=== PATIENT | male | born 1955 | race Two or more races ===

== ENCOUNTER → 2017-10-23 | Outpatient (CLI) | payer OTHER ==
[~2017-10-23] VITALS: Ht 152.4 cm; Wt 59.0 kg
[~2017-10-23] MED LIST: MOTRIN PM CAPL1 EACH
== END | disposition home or self-care (01) ==
LOC: PPHC 09:52
DX: R09.81 Nasal congestion (principal)

== ENCOUNTER 2018-09-15 08:02 | Emergency (ER) | payer OTHER ==
[~2018-09-15] VITALS: Ht 160 cm; Wt 61.2 kg
== END 2018-09-15 12:09 | disposition home or self-care (01) ==
LOC: ER 08:02
DX: S61.412A Laceration without foreign body of left hand, initial encounter (principal); W45.8XXA Other foreign body or object entering through skin, initial encounter; Y93.89 Activity, other specified; Y92.69 Other specified industrial and construction area as the place of occurrence of the external cause; Y99.8 Other external cause status

== ENCOUNTER 2019-01-03 08:34 | Emergency (ER) | payer OTHER ==
[~2019-01-03] VITALS: Ht 160 cm; Wt 63.5 kg
== END 2019-01-03 09:15 | disposition home or self-care (01) ==
LOC: ER 08:34
DX: S61.244A Puncture wound with foreign body of right ring finger without damage to nail, initial encounter (principal); W46.0XXA Contact with hypodermic needle, initial encounter; Y93.89 Activity, other specified; Y92.69 Other specified industrial and construction area as the place of occurrence of the external cause; Y99.8 Other external cause status

== ENCOUNTER 2019-02-01 14:20 | Outpatient (CLI) | payer OTHER | END 2019-02-01 14:51 | disposition home or self-care (01) | LOC: LAB 14:20 | DX: Z11.3 Encounter for screening for infections with a predominantly sexual mode of transmission (principal) ==

== ENCOUNTER 2021-08-19 08:00 | Outpatient (CLI) | payer OTHER | END 2021-08-19 08:30 | disposition home or self-care (01) | LOC: PPH VACUNA 08:00 | PROVIDERS: ATTEND Emergency Medicine Pediatric Emergency Medicine | DX: Z23 Encounter for immunization (principal) ==

== ENCOUNTER 2021-09-19 08:00 | Outpatient (CLI) | payer OTHER | END 2021-09-19 08:30 | disposition home or self-care (01) | LOC: PPH VACUNA 08:00 | PROVIDERS: ATTEND Emergency Medicine Pediatric Emergency Medicine | DX: Z23 Encounter for immunization (principal) ==

== ENCOUNTER 2022-04-23 20:58 | Inpatient (IN) | payer OTHER ==
[~2022-04-23] VITALS: Ht 162.6 cm; Wt 56.7 kg
== END 2022-05-01 20:42 | disposition home or self-care (01) | DRG 65 ==
LOC: ER → MEDJ 04-24 13:12
PROVIDERS: ADMIT Internal Medicine; ATTEND Internal Medicine
PROC: BW28ZZZ Computerized Tomography (CT Scan) of Head (ICD-10-PCS; principal; 2022-04-24)
PROC: BW38ZZZ Magnetic Resonance Imaging (MRI) of Head (ICD-10-PCS; 2022-04-24)
PROC: B345ZZZ Ultrasonography of Bilateral Common Carotid Arteries (ICD-10-PCS; 2022-04-26)
PROC: BW28YZZ Computerized Tomography (CT Scan) of Head using Other Contrast (ICD-10-PCS; 2022-04-27)
PROC: 4A12X4Z Monitoring of Cardiac Electrical Activity, External Approach (ICD-10-PCS; 2022-04-29)
PROC: B24BZZZ Ultrasonography of Heart with Aorta (ICD-10-PCS; 2022-04-29)
DX: I63.9 Cerebral infarction, unspecified (principal); G81.91 Hemiplegia, unspecified affecting right dominant side; I99.8 Other disorder of circulatory system; R29.818 Other symptoms and signs involving the nervous system; R47.1 Dysarthria and anarthria; I10 Essential (primary) hypertension
CPT/HCPCS: 70551

== ENCOUNTER 2022-06-05 09:08 | Outpatient (CLI) | payer OTHER | END 2022-06-05 09:25 | disposition home or self-care (01) | LOC: LAB 09:08 | PROVIDERS: ATTEND Specialist | DX: N39.9 Disorder of urinary system, unspecified (principal); N40.1 Benign prostatic hyperplasia with lower urinary tract symptoms; E78.2 Mixed hyperlipidemia; E11.65 Type 2 diabetes mellitus with hyperglycemia; Z12.11 Encounter for screening for malignant neoplasm of colon; D64.9 Anemia, unspecified; K75.81 Nonalcoholic steatohepatitis (NASH); I10 Essential (primary) hypertension ==

== ENCOUNTER 2022-10-13 08:57 | Emergency (ER) | payer OTHER ==
[~2022-10-13] VITALS: Ht 160 cm; Wt 54.4 kg
[2022-10-13] MEDS ORDERED: PEPCID AC20 MG PO (09:49)
[2022-10-13] MEDS ORDERED: TOPROL XL25 M1 PO (09:49)
[2022-10-13] MEDS ORDERED: ATORVASTATIN CA20 MG PO (09:49)
[2022-10-13] MEDS ORDERED: PLAVIX75 MG PO (09:49)
[2022-10-13] MEDS ORDERED: COZAAR25 MG PO (09:49)
[2022-10-13] MEDS ORDERED: CHILDREN'S ASPI81 MG PO (09:50)
== END 2022-10-13 15:39 | disposition home or self-care (01) ==
LOC: ER 08:57
DX: A09 Infectious gastroenteritis and colitis, unspecified (principal); Z91.012 Allergy to eggs

== ENCOUNTER → 2022-12-08 06:40 | Outpatient (CLI) | payer OTHER ==
[~2022-12-08 06:40] MED LIST changes: +ATORVASTATIN CA20 MG PO; +CHILDREN'S ASPI81 MG PO; +COZAAR25 MG PO; +PEPCID AC20 MG PO; +PLAVIX75 MG PO; +TOPROL XL25 M1 PO
== END | disposition home or self-care (01) ==
LOC: LAB 06:40
PROVIDERS: ATTEND Specialist
DX: E03.9 Hypothyroidism, unspecified (principal); E11.21 Type 2 diabetes mellitus with diabetic nephropathy; N39.9 Disorder of urinary system, unspecified; E78.2 Mixed hyperlipidemia; E11.65 Type 2 diabetes mellitus with hyperglycemia; Z12.11 Encounter for screening for malignant neoplasm of colon; D64.9 Anemia, unspecified; D68.8 Other specified coagulation defects; K75.81 Nonalcoholic steatohepatitis (NASH); N25.81 Secondary hyperparathyroidism of renal origin

== ENCOUNTER 2023-02-07 09:41 | Emergency (ER) | payer OTHER ==
[~2023-02-07] VITALS: Ht 160 cm; Wt 54.4 kg
== END 2023-02-07 14:52 | disposition home or self-care (01) ==
LOC: ER 09:41
DX: R42 Dizziness and giddiness (principal); Z86.73 Personal history of transient ischemic attack (TIA), and cerebral infarction without residual deficits; Z91.012 Allergy to eggs

== ENCOUNTER 2023-03-04 06:31 | Outpatient (CLI) | payer OTHER | END 2023-03-04 06:38 | disposition home or self-care (01) | LOC: LAB 06:31 | PROVIDERS: ATTEND Specialist | DX: D64.89 Other specified anemias (principal); Z12.5 Encounter for screening for malignant neoplasm of prostate; N25.81 Secondary hyperparathyroidism of renal origin; N39.9 Disorder of urinary system, unspecified; Z13.220 Encounter for screening for lipoid disorders; E11.21 Type 2 diabetes mellitus with diabetic nephropathy; J45.991 Cough variant asthma ==

== ENCOUNTER → 2023-06-04 | Outpatient (CLI) | payer OTHER | END | disposition home or self-care (01) | LOC: PPH VACUNA | PROVIDERS: ATTEND Emergency Medicine Pediatric Emergency Medicine | DX: Z23 Encounter for immunization (principal) ==

== ENCOUNTER → 2023-06-05 06:51 | Outpatient (CLI) | payer OTHER | END | disposition home or self-care (01) | LOC: LAB 06:51 | PROVIDERS: ATTEND Specialist | DX: E03.8 Other specified hypothyroidism (principal); E11.69 Type 2 diabetes mellitus with other specified complication; E11.21 Type 2 diabetes mellitus with diabetic nephropathy; D64.89 Other specified anemias; N39.9 Disorder of urinary system, unspecified; Z13.220 Encounter for screening for lipoid disorders; Z91.012 Allergy to eggs ==

== ENCOUNTER 2023-06-24 09:14 | Outpatient (CLI) | payer OTHER | END 2023-06-24 09:28 | disposition home or self-care (01) | LOC: SONOGRAMA 09:14 | PROVIDERS: ATTEND Specialist | DX: N13.2 Hydronephrosis with renal and ureteral calculous obstruction (principal) ==

== ENCOUNTER → 2023-07-13 06:10 | Outpatient (CLI) | payer OTHER ==
[2023-07-13 07:03] LABS: PH,URINE 5.5 (5.0-8.0); URINE APPEARANCE Clear; URINE BILIRRUBIN Negative (NEGATIVE); URINE BLOOD Trace; URINE COLOR Yellow; URINE GLUCOSE Negative (NEGATIVE); URINE LEUKOCYTE Negative; URINE NITRATE Negative; URINE PROTEIN Trace (NEGATIVE); URINE UROBILINOGEN 0.2 E.U./dl
[2023-07-13 07:05] LABS: HEMATOCRIT 38.1 % (39.0-48.0); HEMOGLOBIN 12.6 g/dL (13-16.00); MEAN CELL VOLUME 90.1 fL (80.0-100.00); MEAN CORPUSCULAR HEMOGLOBIN 29.8 pg (27.00-32.0); MEAN CORPUSCULAR HGB CONC 33.1 g/dl (32.0-36.0); PLATELET COUNT 281 K/uL (150-450); RED BLOOD COUNT 4.23 M/uL (4.00-6.00); RED CELL DISTRIBUTION WIDTH 12.7 % (11.5-14.5)
[2023-07-13 07:06] LABS: URINE EPITHELIAL CELLS 3.3 uL (0.0-38.8); URINE RBC 22.1 uL (0.0-20.8); URINE WBC 2.7 uL (0.0-23.2)
[2023-07-13 07:25] LABS: INR 1.04; PARTIAL THROMBOPLASTIN TIME 24.3 SECONDS (22.0-34.0); PROTHROMBIN TIME 10.9 SECONDS (9.0-11.5)
[2023-07-13 07:57] LABS: FERRITIN 91.1 NG/ML (26-388); PROSTATIC SPECIFIC ANTIGEN 1.73 NG/ML (0.010-4.00)
[2023-07-13 10:18] LABS: FOLIC ACID > 20.00 ng/ml (4.78-20)
== END | disposition home or self-care (01) ==
LOC: LAB 06:10
PROVIDERS: ATTEND Specialist
DX: N39.9 Disorder of urinary system, unspecified (principal); N40.1 Benign prostatic hyperplasia with lower urinary tract symptoms; D64.9 Anemia, unspecified; D68.8 Other specified coagulation defects; N39.0 Urinary tract infection, site not specified; D51.0 Vitamin B12 deficiency anemia due to intrinsic factor deficiency

== ENCOUNTER → 2023-08-12 06:15 | Outpatient (CLI) | payer OTHER ==
[2023-08-12 08:23] LABS: HEMATOCRIT 37.4 % (39.0-48.0); HEMOGLOBIN 12.8 g/dL (13-16.00); MEAN CELL VOLUME 88.1 fL (80.0-100.00); MEAN CORPUSCULAR HEMOGLOBIN 30.3 pg (27.00-32.0); MEAN CORPUSCULAR HGB CONC 34.3 g/dl (32.0-36.0); PLATELET COUNT 270 K/uL (150-450); RED BLOOD COUNT 4.24 M/uL (4.00-6.00); RED CELL DISTRIBUTION WIDTH 12.8 % (11.5-14.5)
[2023-08-12 11:33] LABS: PLATELET ESTIMATE NORMAL (NORMAL)
== END | disposition home or self-care (01) ==
LOC: LAB 06:15
PROVIDERS: ATTEND Specialist
DX: D51.0 Vitamin B12 deficiency anemia due to intrinsic factor deficiency (principal); Z91.012 Allergy to eggs

== ENCOUNTER → 2024-04-14 | Emergency (ER) | payer OTHER ==
[~2024-04-14] VITALS: Ht 160 cm; Wt 54.4 kg
[~2024-04-14] MED LIST changes: +0.9 % SODIUM CHLORIDE 1,000 ML IV SCH; +DIPHENHYDRAMINE HCL 50 MG/ML VIAL 1ML IV ONE; +DRAMAMINE LESS25 MG PO; +MECLIZINE HCL 25 MG TABLET PO ONE; +ONDANSETRON HCL 2 MG/ML VIAL IV ONE
[2024-04-14 11:32] LABS: HEMATOCRIT 38.2 % (39.0-48.0); MEAN CORPUSCULAR HEMOGLOBIN 30.4 pg (27.00-32.0); MEAN CORPUSCULAR HGB CONC 34.1 g/dl (32.0-36.0); PLATELET COUNT 283 K/uL (150-450); RED BLOOD COUNT 4.29 M/uL (4.00-6.00); RED CELL DISTRIBUTION WIDTH 12.9 % (11.5-14.5)
[2024-04-14 11:54] LABS: ALBUMIN 3.6 gm/dL (3.4-5.0); BILIRUBIN TOTAL 0.48 mg/dL (0.3-1.2); CREATININE SERUM 0.79 mg/dL (0.70-1.30); GFR 97.25; GLOBULINA 3.3 G/DL (2.4-3.5); POTASSIUM 3.78 mEq/L (3.5-5.1); TOTAL PROTEIN 6.9 gm/dL (6.4-8.2)
== END | disposition home or self-care (01) ==
LOC: ER 10:36
PROVIDERS: General Practice
DX: R42 Dizziness and giddiness (principal); I10 Essential (primary) hypertension; Z91.018 Allergy to other foods

== ENCOUNTER 2024-05-01 06:12 | Emergency (ER) | payer OTHER ==
[~2024-05-01] VITALS: Ht 154.9 cm; Wt 49.9 kg
[~2024-05-01 06:12] MED LIST changes: -0.9 % SODIUM CHLORIDE 1,000 ML IV SCH; -DIPHENHYDRAMINE HCL 50 MG/ML VIAL 1ML IV ONE; -MECLIZINE HCL 25 MG TABLET PO ONE; -ONDANSETRON HCL 2 MG/ML VIAL IV ONE
== END 2024-05-01 10:32 | disposition home or self-care (01) ==
LOC: ER 06:12
DX: R51.9 Headache, unspecified (principal); M51.36 Other intervertebral disc degeneration, lumbar region; Z91.012 Allergy to eggs; Z91.018 Allergy to other foods; I10 Essential (primary) hypertension

== ENCOUNTER → 2024-05-03 | Emergency (ER) | payer OTHER ==
[~2024-05-03] VITALS: Ht 154.9 cm; Wt 54.4 kg
[~2024-05-03] MED LIST changes: +DEXAMETHASONE SODIUM PHOSPHATE 4 MG/ML VIAL IV STA; +DEXAMETHASONE SODIUM PHOSPHATE 4 MG/ML VIAL ONE; +MANNITOL 0.2 GM/ML (250ML) PIGGYBAG IV STA; +MANNITOL 0.2 GM/ML (500ML) IV.SOLN IV ONE; +MANNITOL 0.2 GM/ML (500ML) IV.SOLN IV STA
[2024-05-03 14:45] LABS: HEMATOCRIT 41.1 % (39.0-48.0); HEMOGLOBIN 14.2 g/dL (13-16.00); MEAN CELL VOLUME 88.3 fL (80.0-100.00); MEAN CORPUSCULAR HEMOGLOBIN 30.4 pg (27.00-32.0); MEAN CORPUSCULAR HGB CONC 34.5 g/dl (32.0-36.0); PLATELET COUNT 334 K/uL (150-450); RED BLOOD COUNT 4.66 M/uL (4.00-6.00); RED CELL DISTRIBUTION WIDTH 12.5 % (11.5-14.5)
[2024-05-03 16:28] LABS: PH,URINE 5.5 (5.0-8.0); URINE APPEARANCE Clear; URINE BILIRRUBIN Negative (NEGATIVE); URINE BLOOD Moderate; URINE COLOR Yellow; URINE KETONE Negative (NEGATIVE); URINE LEUKOCYTE Negative; URINE NITRATE Negative; URINE PROTEIN Trace (NEGATIVE)
[2024-05-03 16:29] LABS: URINE BACTERIA 6.2 uL (0.0-1933); URINE EPITHELIAL CELLS 2.9 uL (0.0-38.8); URINE RBC 69.1 uL (0.0-20.8)
[2024-05-03 16:49] LABS: URINE CAST 0.15 uL (0.0-1.40); URINE GLUCOSE 250 MG/DL (NEGATIVE)
== END | disposition home or self-care (01) ==
LOC: ER 11:10
PROVIDERS: General Practice
DX: I61.9 Nontraumatic intracerebral hemorrhage, unspecified (principal); I10 Essential (primary) hypertension; Z86.73 Personal history of transient ischemic attack (TIA), and cerebral infarction without residual deficits; Z91.012 Allergy to eggs; Z91.018 Allergy to other foods; Z20.822 Contact with and (suspected) exposure to COVID-19
CPT/HCPCS: 70551

== ENCOUNTER 2024-05-12 06:22 | Outpatient (CLI) | payer OTHER ==
[~2024-05-12 06:22] MED LIST changes: -DEXAMETHASONE SODIUM PHOSPHATE 4 MG/ML VIAL IV STA; -DEXAMETHASONE SODIUM PHOSPHATE 4 MG/ML VIAL ONE; -MANNITOL 0.2 GM/ML (250ML) PIGGYBAG IV STA; -MANNITOL 0.2 GM/ML (500ML) IV.SOLN IV ONE; -MANNITOL 0.2 GM/ML (500ML) IV.SOLN IV STA
[2024-05-12 07:21] LABS: HEMATOCRIT 36.2 % (39.0-48.0); HEMOGLOBIN 12.6 g/dL (13-16.00); MEAN CELL VOLUME 89.6 fL (80.0-100.00); MEAN CORPUSCULAR HEMOGLOBIN 31.2 pg (27.00-32.0); MEAN CORPUSCULAR HGB CONC 34.8 g/dl (32.0-36.0); PLATELET COUNT 457 K/uL (150-450); RED BLOOD COUNT 4.04 M/uL (4.00-6.00); RED CELL DISTRIBUTION WIDTH 12.3 % (11.5-14.5)
[2024-05-12 07:34] LABS: INR 1.04; PARTIAL THROMBOPLASTIN TIME 27.7 SECONDS (22.0-34.0)
[2024-05-12 07:35] LABS: PROTHROMBIN TIME 10.9 SECONDS (9.0-11.5)
[2024-05-16 07:36] LABS: VON WILLERBRAND ACTIVITY 196; VON WILLERBRAND ANTIGEN 216
== END 2024-05-12 06:24 | disposition home or self-care (01) ==
LOC: LAB 06:22
PROVIDERS: ATTEND Psychiatry & Neurology Clinical Neurophysiology
DX: D68.00 Von Willebrand disease, unspecified (principal)

== ENCOUNTER 2024-05-12 10:05 | Outpatient (CLI) | payer OTHER | END 2024-05-12 13:37 | disposition home or self-care (01) | LOC: TOM 10:05 | DX: S06.5XAA Traumatic subdural hemorrhage with loss of consciousness status unknown, initial encounter (principal) ==

== ENCOUNTER 2024-07-29 08:58 | Outpatient (CLI) | payer OTHER | END 2024-07-29 09:09 | disposition home or self-care (01) | LOC: TOM 08:58 | DX: S06.5X0A Traumatic subdural hemorrhage without loss of consciousness, initial encounter (principal) ==

== ENCOUNTER → 2024-08-05 06:04 | Outpatient (CLI) | payer OTHER ==
[2024-08-05 07:25] LABS: PH,URINE 6.5 (5.0-8.0); URINE APPEARANCE Clear; URINE BILIRRUBIN Negative (NEGATIVE); URINE COLOR Yellow; URINE GLUCOSE Negative (NEGATIVE); URINE KETONE Trace (NEGATIVE); URINE LEUKOCYTE Negative; URINE NITRATE Negative; URINE PROTEIN Trace (NEGATIVE); URINE UROBILINOGEN 0.2 E.U./dl
[2024-08-05 07:26] LABS: URINE RBC 49.9 uL (0.0-20.8); URINE WBC 2.9 uL (0.0-23.2)
[2024-08-05 07:27] LABS: HEMATOCRIT 38.2 % (39.0-48.0); MEAN CELL VOLUME 90.4 fL (80.0-100.00); MEAN CORPUSCULAR HEMOGLOBIN 30.8 pg (27.00-32.0); PLATELET COUNT 264 K/uL (150-450); RED BLOOD COUNT 4.22 M/uL (4.00-6.00); RED CELL DISTRIBUTION WIDTH 13.5 % (11.5-14.5)
[2024-08-05 07:31] LABS: URINE BACTERIA 2.5 uL (0.0-1933); URINE BLOOD TRACES; URINE EPITHELIAL CELLS 1.2 uL (0.0-38.8)
[2024-08-05 07:36] LABS: INR 1.04; PARTIAL THROMBOPLASTIN TIME 26.5 SECONDS (22.0-34.0); PROTHROMBIN TIME 11.3 SECONDS (9.0-11.5)
[2024-08-05 08:07] LABS: ALBUMIN 3.5 gm/dL (3.4-5.0); BILIRUBIN TOTAL 0.52 mg/dL (0.3-1.2); BILIRUBIN,CONJUGATED 0.17 mg/dL (0.0-0.2); BILIRUBIN,UNCONJUGATED 0.35 mg/dL (0.0-0.6); CALCIUM 8.9 mg/dL (8.5-10.1); CHOL HDL RATIO 2.6 (0-5.0); CREATININE SERUM 0.75 mg/dL (0.70-1.30); GFR 103.26; GLOBULINA 3.5 G/DL (2.4-3.5); POTASSIUM 4.3 mEq/L (3.5-5.1); TSH 3.53 uIU/mL (0.358-3.74)
== END | disposition home or self-care (01) ==
LOC: LAB 06:04
PROVIDERS: ATTEND Specialist
DX: E03.9 Hypothyroidism, unspecified (principal); N39.9 Disorder of urinary system, unspecified; E78.2 Mixed hyperlipidemia; E11.65 Type 2 diabetes mellitus with hyperglycemia; D64.9 Anemia, unspecified; D68.8 Other specified coagulation defects; K75.81 Nonalcoholic steatohepatitis (NASH); N25.81 Secondary hyperparathyroidism of renal origin

== ENCOUNTER 2024-11-03 06:07 | Outpatient (CLI) | payer OTHER ==
[2024-11-03 07:11] LABS: URINE APPEARANCE Clear; URINE BILIRRUBIN Negative (NEGATIVE); URINE BLOOD Negative; URINE COLOR Yellow; URINE GLUCOSE Negative (NEGATIVE); URINE KETONE Trace (NEGATIVE); URINE LEUKOCYTE Trace; URINE NITRATE Negative; URINE PROTEIN Trace (NEGATIVE)
[2024-11-03 07:12] LABS: URINE RBC 67.4 uL (0.0-20.8); URINE WBC 1.8 uL (0.0-23.2)
[2024-11-03 07:13] LABS: URINE BACTERIA 1.2 uL (0.0-1933); URINE CAST 0.14 uL (0.0-1.40); URINE EPITHELIAL CELLS 0.7 uL (0.0-38.8)
[2024-11-03 07:33] LABS: HEMATOCRIT 38.5 % (39.0-48.0); HEMOGLOBIN 12.9 g/dL (13-16.00); MEAN CORPUSCULAR HEMOGLOBIN 29.8 pg (27.00-32.0); MEAN CORPUSCULAR HGB CONC 33.5 g/dl (32.0-36.0); PLATELET COUNT 250 K/uL (150-450); RED BLOOD COUNT 4.33 M/uL (4.00-6.00); RED CELL DISTRIBUTION WIDTH 13.1 % (11.5-14.5)
[2024-11-03 09:08] LABS: ALBUMIN 3.5 gm/dL (3.4-5.0); BILIRUBIN TOTAL 0.68 mg/dL (0.3-1.2); CALCIUM 8.8 mg/dL (8.5-10.1); CHOL HDL RATIO 2.9 (0-5.0); CREATININE SERUM 0.73 mg/dL (0.70-1.30); FREE TRIODOTIRONINE 2.37 pg/ml (2.18-3.98); GFR 106.53; GLOBULINA 3.2 G/DL (2.4-3.5); POTASSIUM 4.11 mEq/L (3.5-5.1); PROSTATIC SPECIFIC ANTIGEN 1.77 NG/ML (0.010-4.00); T4 FREE 0.83 NG/ML (0.76-1.46); TOTAL PROTEIN 6.7 gm/dL (6.4-8.2); TSH 2.2 uIU/mL (0.358-3.74)
[2024-11-03 10:19] LABS: PLATELET ESTIMATE NORMAL (NORMAL)
== END 2024-11-03 06:09 | disposition home or self-care (01) ==
LOC: LAB 06:07
PROVIDERS: ATTEND Specialist
DX: E03.9 Hypothyroidism, unspecified (principal); E11.21 Type 2 diabetes mellitus with diabetic nephropathy; N39.9 Disorder of urinary system, unspecified; D40.0 Neoplasm of uncertain behavior of prostate; E78.2 Mixed hyperlipidemia; E11.65 Type 2 diabetes mellitus with hyperglycemia; Z12.11 Encounter for screening for malignant neoplasm of colon; D64.9 Anemia, unspecified; N25.81 Secondary hyperparathyroidism of renal origin

== ENCOUNTER 2024-11-03 06:59 | Outpatient (CLI) | payer OTHER | END 2024-11-03 07:01 | disposition home or self-care (01) | LOC: SONOGRAMA 06:59 | PROVIDERS: ATTEND Specialist | DX: R31.9 Hematuria, unspecified (principal) ==

== ENCOUNTER 2024-11-22 06:57 | Outpatient (CLI) | payer OTHER ==
[2024-11-22 08:11] LABS: ob NEGATIVE (NEGATIVE)
== END 2024-11-22 07:01 | disposition home or self-care (01) ==
LOC: LAB 06:57
PROVIDERS: ATTEND Specialist
DX: E03.9 Hypothyroidism, unspecified (principal); E11.21 Type 2 diabetes mellitus with diabetic nephropathy; N39.0 Urinary tract infection, site not specified; D40.0 Neoplasm of uncertain behavior of prostate; E78.2 Mixed hyperlipidemia; E11.65 Type 2 diabetes mellitus with hyperglycemia; Z12.11 Encounter for screening for malignant neoplasm of colon; D64.9 Anemia, unspecified; N25.81 Secondary hyperparathyroidism of renal origin; E55.9 Vitamin D deficiency, unspecified

== ENCOUNTER 2024-12-27 11:12 | Outpatient (CLI) | payer OTHER ==
[2024-12-29 07:09] LABS: HEPATITIS A ANTIBODY IGG Positive (Negative); HEPATITIS B SURFACE ANTIBODY Reactive (.); HEPATITIS C VIRUS ANTIBODY Non Reactive (Non Reactive)
== END 2024-12-27 11:13 | disposition home or self-care (01) ==
LOC: LAB 11:12
DX: A64 Unspecified sexually transmitted disease (principal); B19.9 Unspecified viral hepatitis without hepatic coma

== ENCOUNTER 2025-05-28 07:08 | Emergency (ER) | payer OTHER ==
[~2025-05-28] VITALS: Ht 160 cm; Wt 55.3 kg
[2025-05-28] MEDS ORDERED: FOLIC ACID0.8 M1 PO (07:17)
[2025-05-28] MEDS ORDERED: METFORMIN HCL500 M3 PO (07:17)
[2025-05-28] MEDS ORDERED: FAMOTIDINE/PF 20 MG in 0.9 % SODIUM CHLORIDE 100 ML IV PUSH ONE (08:30)
[2025-05-28] MEDS ORDERED: ONDANSETRON HCL 2 MG/ML VIAL IV ONE (08:30)
[2025-05-28] MEDS ORDERED: SODIUM CHLORIDE 0.45 % 500 ML IV ONE (08:45)
[2025-05-28 09:29] LABS: BASO % 0.6 % (0.1-1.2); EOS # 0.02 (0.04-0.54); EOS % 0.2 % (0.7-7.0); LYMPH # 1.77 (1.18-3.74); LYMPH % 17.7 % (19.3-53.1); MEAN PLATELET VOLUME 9.20 fl (9.4-12.4); MONO # 1.00 (0.24-0.82); MONO % 10.0 % (4.7-12.5); NEUT # 7.12 (1.56-6.13); NEUT % 71.0 % (34.0-71.1); RED CELL DISTRIBUTION WIDTH 12.3 % (11.6-14.4)
[2025-05-28 10:10] LABS: ALT/SGPT 19.0 U/L (12-78); AST/SGOT 29.0 U/L (15-37); BILIRUBIN TOTAL 0.7 mg/dL (0.3-1.2); BUN CREA RATIO 22.0 (7.0-25.0); CREATININE SERUM 0.83 mg/dL (0.70-1.30); GFR 91.59; GLOBULINA 4.2 G/DL (2.4-3.5); GLUCOSE FASTING 94.0 mg/dL (65-100); OSMOLALITY SERUM 281.0 MOSM/KG (275-295)
[2025-05-28 10:44] LABS: URINE APPEARANCE Clear; URINE BILIRRUBIN Negative (NEGATIVE); URINE BLOOD NHT; URINE COLOR Yellow; URINE GLUCOSE Negative (NEGATIVE); URINE KETONE Negative (NEGATIVE); URINE LEUKOCYTE Negative; URINE NITRATE Negative; URINE PROTEIN Negative (NEGATIVE); URINE UROBILINOGEN 0.2 E.U./dl
[2025-05-28 10:49] LABS: URINE RBC 22.2 uL (0.0-20.8); URINE WBC 3.3 uL (0.0-23.2)
[2025-05-28 10:53] LABS: URINE BACTERIA 1.1 uL (0.0-1933); URINE CAST 0.29 uL (0.0-1.40); URINE EPITHELIAL CELLS 0.7 uL (0.0-38.8)
== END 2025-05-28 09:01 | disposition home or self-care (01) ==
LOC: ER 07:09
PROVIDERS: General Practice
DX: K29.70 Gastritis, unspecified, without bleeding (principal); A05.9 Bacterial foodborne intoxication, unspecified; I10 Essential (primary) hypertension; E11.9 Type 2 diabetes mellitus without complications; Z79.84 Long term (current) use of oral hypoglycemic drugs; Z91.012 Allergy to eggs; Z91.018 Allergy to other foods

== ENCOUNTER 2025-05-30 05:27 | Emergency (ER) | payer OTHER ==
[~2025-05-30] VITALS: Ht 160 cm; Wt 55.3 kg
[~2025-05-30 05:27] MED LIST changes: +FOLIC ACID0.8 M1 PO; +METFORMIN HCL500 M3 PO
[2025-05-30] MEDS ORDERED: 0.9 % SODIUM CHLORIDE 1,000 ML IV STA (06:59)
[2025-05-30] MEDS ORDERED: MECLIZINE HCL 25 MG TABLET PO STA (07:00)
[2025-05-30 08:19] LABS: ALT/SGPT 14.0 U/L (12-78); AST/SGOT 17.0 U/L (15-37); BILIRUBIN TOTAL 0.61 mg/dL (0.3-1.2); BUN CREA RATIO 19.0 (7.0-25.0); CREATININE SERUM 0.84 mg/dL (0.70-1.30); GFR 90.33; GLOBULINA 3.7 G/DL (2.4-3.5); GLUCOSE FASTING 90.0 mg/dL (65-100); OSMOLALITY SERUM 284.0 MOSM/KG (275-295)
[2025-05-30 08:29] LABS: BASO % 0.7 % (0.1-1.2); EOS # 0.08 (0.04-0.54); EOS % 0.9 % (0.7-7.0); LYMPH # 1.48 (1.18-3.74); LYMPH % 16.1 % (19.3-53.1); MEAN PLATELET VOLUME 9.20 fl (9.4-12.4); MONO # 0.97 (0.24-0.82); MONO % 10.5 % (4.7-12.5); NEUT # 6.56 (1.56-6.13); NEUT % 71.3 % (34.0-71.1); RED CELL DISTRIBUTION WIDTH 12.0 % (11.6-14.4)
[2025-05-30 08:37] LABS: INR 1.05
== END 2025-05-30 10:50 | disposition home or self-care (01) ==
LOC: ER 05:27
DX: K29.70 Gastritis, unspecified, without bleeding (principal); R53.1 Weakness; I10 Essential (primary) hypertension; Z91.012 Allergy to eggs; Z91.018 Allergy to other foods

== ENCOUNTER 2025-07-06 06:04 | Outpatient (CLI) | payer OTHER ==
[2025-07-06 07:08] LABS: BASO % 0.8 % (0.1-1.2); EOS # 0.32 (0.04-0.54); EOS % 5.0 % (0.7-7.0); LYMPH # 1.64 (1.18-3.74); LYMPH % 25.6 % (19.3-53.1); MEAN PLATELET VOLUME 9.00 fl (9.4-12.4); MONO # 0.71 (0.24-0.82); MONO % 11.1 % (4.7-12.5); NEUT # 3.66 (1.56-6.13); NEUT % 57.2 % (34.0-71.1); RED CELL DISTRIBUTION WIDTH 12.3 % (11.6-14.4)
[2025-07-06 07:15] LABS: INR 1.08
[2025-07-06 07:43] LABS: ALT/SGPT 15 U/L (12-78); AST/SGOT 16 U/L (15-37); BILIRUBIN TOTAL 0.76 mg/dL (0.3-1.2); BUN CREA RATIO 22 (7.0-25.0); CHOL HDL RATIO 2.7 (0-5.0); CREATININE SERUM 0.76 mg/dL (0.70-1.30); FREE TRIODOTIRONINE 2.17 pg/ml (2.18-3.98); GFR 101.39; GLOBULINA 3.3 G/DL (2.4-3.5); GLUCOSE FASTING 94 mg/dL (65-100); HDL 48 mg/dl (40-60); LDL 69 mg/dl (0-130); OSMOLALITY SERUM 286 MOSM/KG (275-295); PROSTATIC SPECIFIC ANTIGEN 1.880 NG/ML (0.010-4.00); T4 FREE 0.88 NG/ML (0.76-1.46); TSH 2.770 uIU/mL (0.358-3.74); VLDL 13 (0-39)
[2025-07-06 10:12] LABS: URINE APPEARANCE Clear; URINE BILIRRUBIN Negative (NEGATIVE); URINE BLOOD Negative; URINE COLOR Dark Yellow; URINE GLUCOSE Negative (NEGATIVE); URINE KETONE Trace (NEGATIVE); URINE LEUKOCYTE Trace; URINE NITRATE Negative; URINE PROTEIN 30 (NEGATIVE); URINE UROBILINOGEN 1.0 E.U./dl
[2025-07-06 10:14] LABS: URINE RBC 50.5 uL (0.0-20.8)
[2025-07-06 10:22] LABS: URINE BACTERIA 0 uL (0.0-1933); URINE CAST 0.14 uL (0.0-1.40); URINE EPITHELIAL CELLS 1.2 uL (0.0-38.8); URINE WBC 1.5 uL (0.0-23.2)
[2025-07-06 10:28] LABS: CREATININE URINE RANDOM 299.0 MG/DL (30-125)
== END 2025-07-06 06:05 | disposition home or self-care (01) ==
LOC: LAB 06:04
PROVIDERS: ATTEND Specialist
DX: E03.9 Hypothyroidism, unspecified (principal); N39.9 Disorder of urinary system, unspecified; N40.1 Benign prostatic hyperplasia with lower urinary tract symptoms; D40.0 Neoplasm of uncertain behavior of prostate; E78.2 Mixed hyperlipidemia; E11.65 Type 2 diabetes mellitus with hyperglycemia; Z12.11 Encounter for screening for malignant neoplasm of colon; D64.9 Anemia, unspecified; J45.998 Other asthma; D68.8 Other specified coagulation defects; N25.81 Secondary hyperparathyroidism of renal origin; N39.0 Urinary tract infection, site not specified; E11.21 Type 2 diabetes mellitus with diabetic nephropathy; E55.9 Vitamin D deficiency, unspecified; Z91.0120 Allergy to eggs, unspecified; Z91.018 Allergy to other foods

== ENCOUNTER → 2025-07-10 07:39 | Outpatient (CLI) | payer OTHER ==
[2025-07-10 08:40] LABS: ob NEGATIVE (NEGATIVE)
== END | disposition home or self-care (01) ==
LOC: LAB 07:39
PROVIDERS: ATTEND Specialist
DX: E11.21 Type 2 diabetes mellitus with diabetic nephropathy (principal); N39.9 Disorder of urinary system, unspecified; E78.2 Mixed hyperlipidemia; D64.9 Anemia, unspecified; E11.65 Type 2 diabetes mellitus with hyperglycemia; J45.998 Other asthma; D68.8 Other specified coagulation defects; K75.81 Nonalcoholic steatohepatitis (NASH); N39.0 Urinary tract infection, site not specified; E55.9 Vitamin D deficiency, unspecified